=== PATIENT | female | born 1950 | race Caucasian/White ===

== ENCOUNTER 2018-05-18 13:38 | Inpatient (IN) ==
[2018-05-18] MEDS ORDERED: methylPREDNISolone SOD SUC 125 MG/2 ML VIAL IV STA (14:14)
[2018-05-18] MEDS ORDERED: ALBUTEROL 2.5 MG/3 ML NEB RESP TX STA (14:14)
[2018-05-18] MEDS ORDERED: FUROSEMIDE 40 MG/4 ML VIAL IV STA (14:25)
[2018-05-18 14:47] LABS: Basophils % 0.7 % (0.0-0.8); Eosinophils # 0.3 10*3/uL (0.0-0.87); Eosinophils % 5.4 % (0.00-10.9); Hematocrit 37.7 VOL% (35.7-47.0); Hemoglobin 12.6 GM/DL (12.0-16.0); Immature Granulocytes % 0.2 %; Immature Granulocytes Absolute 0.01 #; Lymphocytes % 16.8 % (21.3-54.2); Mean Corpuscular HGB Conc 33.4 GM/DL (32-36); Mean Corpuscular Hemoglobin 32 PG (27-34); Mean Corpuscular Volume 94.5 FL (87-102); Mean Platelet Volume 10.8 FL (9.6-12.0); Monocytes # 0.5 10*3/uL (0.11-0.8); Monocytes % 8.4 % (1.7-12.7); Neutrophils # 4.1 10*3/uL (1.4-7.4); Neutrophils % 68.5 % (38.7-73.9); Platelet Count 115 T/CUMM (130-400); Red Blood Count 3.99 MC/CUMM (3.8-5.5); Red Cell Distribution Width 14.3 % (9.3-17.3); White Blood Count 5.9 T/CUMM (4-12)
[2018-05-18] MEDS ORDERED: LEVOFLOXACIN INJ 500 MG in PREMIX 1 EACH IV STA (14:57)
[2018-05-18 15:03] LABS: INR 1.5
[2018-05-18 15:06] LABS: Albumin 3.8 G/DL (3.4-5.0); Bilirubin,Total 0.7 MG/DL (0.2-1.0); Calcium 8.8 MG/DL (8.5-10.1); Osmolality,Calculated 279.5 MOS/KG (273-304); Potassium 4.2 MMOL/L (3.5-5.1); Total Protein 7.4 G/DL (6.4-8.3)
[2018-05-18] MEDS ORDERED: IPRATROPIUM 500 MCG/2.5 ML NEB RESP TX PRN (18:04)
[2018-05-18] MEDS ORDERED: ALBUTEROL 2.5 MG/3 ML NEB RESP TX PRN (19:01)
[2018-05-18] MEDS ORDERED: ONDANSETRON 4 MG/2 ML VIAL IV PRN (19:40)
[2018-05-18] MEDS ORDERED: MEROPENEM 1,000 MG in SYRINGE 1 EACH IV SCH (20:00)
[2018-05-18] MEDS: methylPREDNISolone SOD SUC 40 MG/1 ML VIAL IV SCH (20:58)
[2018-05-18] MEDS: GABAPENTIN 300 MG CAPSULE PO SCH (20:59)
[2018-05-18] MEDS: cefTRIAXone 1,000 MG in SYRINGE 1 EACH IV SCH (20:59)
[2018-05-18] MEDS: METOPROLOL TARTRATE 100 MG TABLET PO SCH (20:59)
[2018-05-18] MEDS: glipiZIDE 5 MG TABLET PO SCH (21:00)
[2018-05-18] MEDS: POTASSIUM CHLORIDE 20 MEQ TABLET PO SCH (21:00)
[2018-05-18] MEDS: DOCUSATE SODIUM 100 MG CAPSULE PO SCH (21:00)
[2018-05-18] MEDS: FUROSEMIDE 80 MG TABLET PO SCH (21:00)
[2018-05-18] MEDS: WARFARIN 4 MG TABLET PO SCH (21:00)
[2018-05-18] MEDS: MAGNESIUM OXIDE 400 MG TABLET PO SCH (21:01)
[2018-05-18] MEDS: FAMOTIDINE 20 MG TABLET PO SCH (21:01)
[2018-05-18] MEDS: ALBUTEROL/IPRATROPIUM 3 ML NEB RESP TX SCH ×2 (23:57→23:58)
[2018-05-19] MEDS: ZALEPLON 5 MG CAPSULE PO PRN ×2 (01:25→22:19)
[2018-05-19] MEDS: ALBUTEROL/IPRATROPIUM 3 ML NEB RESP TX SCH ×4 (03:22→20:10)
[2018-05-19 05:20] LABS: Eosinophils % 0.3 % (0.00-10.9); Hematocrit 36.2 VOL% (35.7-47.0); Hemoglobin 11.9 GM/DL (12.0-16.0); Immature Granulocytes % 0.3 %; Immature Granulocytes Absolute 0.01 #; Lymphocytes # 0.8 10*3/uL (1.4-4.0); Lymphocytes % 20.5 % (21.3-54.2); Mean Corpuscular HGB Conc 32.9 GM/DL (32-36); Mean Corpuscular Hemoglobin 31 PG (27-34); Mean Corpuscular Volume 94.5 FL (87-102); Mean Platelet Volume 11.3 FL (9.6-12.0); Monocytes # 0.1 10*3/uL (0.11-0.8); Monocytes % 1.3 % (1.7-12.7); Neutrophils # 3.1 10*3/uL (1.4-7.4); Neutrophils % 77.6 % (38.7-73.9); Platelet Count 118 T/CUMM (130-400); Red Blood Count 3.83 MC/CUMM (3.8-5.5); Red Cell Distribution Width 14.1 % (9.3-17.3)
[2018-05-19 05:22] LABS: INR 1.5; PT Patient Result 15.6 SECS
[2018-05-19 05:26] LABS: Lactic Acid 0.9 MMOL/L (0.4-2.0)
[2018-05-19 05:44] LABS: Band Neutrophils 2 % (0-10); Hypochromasia 1+; Lymphocytes 15 % (20-55); Ovalocytes Slight; Platelet Estimate Decreased; Segmented Neutrophils 81 % (50-85); Total Cells Counted 100
[2018-05-19 05:57] LABS: Blood Urea Nitrogen 24 MG/DL (7-18); Glucose 110 MG/DL (74-106); Osmolality,Calculated 281.5 MOS/KG (273-304); Potassium 4.3 MMOL/L (3.5-5.1); Sodium 139 MMOL/L (136-145); Troponin I < 0.015 NG/ML (0.00-0.045)
[2018-05-19] MEDS: LEVOTHYROXINE 50 MCG TABLET PO SCH (06:36)
[2018-05-19] MEDS: DILTIAZEM CD 120 MG CAPSULE PO SCH (09:01)
[2018-05-19] MEDS: MULTIVITAMIN (CENTRUM) TABLET PO SCH (09:01)
[2018-05-19] MEDS: FAMOTIDINE 20 MG TABLET PO SCH ×2 (09:02→20:59)
[2018-05-19] MEDS: MAGNESIUM OXIDE 400 MG TABLET PO SCH ×2 (09:02→20:59)
[2018-05-19] MEDS: GABAPENTIN 300 MG CAPSULE PO SCH ×3 (09:02→20:59)
[2018-05-19] MEDS: MONTELUKAST 10 MG TABLET PO SCH (09:02)
[2018-05-19] MEDS: HYDROXYCHLOROQUINE 200 MG TABLET PO SCH (09:02)
[2018-05-19] MEDS: PANTOPRAZOLE 40 MG TABLET PO SCH (09:02)
[2018-05-19] MEDS: CALCIUM (CARBONATE)/VITAMIN D 600 MG-400 UNIT TABLET PO SCH (09:03)
[2018-05-19] MEDS: glipiZIDE 5 MG TABLET PO SCH ×3 (09:03→20:59)
[2018-05-19] MEDS: ASCORBIC ACID 500 MG TABLET PO SCH (09:03)
[2018-05-19] MEDS: METOPROLOL TARTRATE 100 MG TABLET PO SCH ×3 (09:03→20:59)
[2018-05-19] MEDS: ASPIRIN EC 81 MG TABLET PO SCH (09:03)
[2018-05-19] MEDS: POTASSIUM CHLORIDE 20 MEQ TABLET PO SCH ×2 (09:03→20:59)
[2018-05-19] MEDS: FUROSEMIDE 80 MG TABLET PO SCH ×2 (09:04→16:28)
[2018-05-19] MEDS: methylPREDNISolone SOD SUC 40 MG/1 ML VIAL IV SCH ×2 (09:04→20:58)
[2018-05-19] MEDS: SERTRALINE 50 MG TABLET PO SCH (09:04)
[2018-05-19] MEDS: AZITHROMYCIN INJ 500 MG in SODIUM CHLORIDE 0.9% 250 ML IV SCH (09:04)
[2018-05-19] MEDS: ARFORMOTEROL 15 MCG/2 ML NEB RESP TX SCH ×2 (09:39→20:10)
[2018-05-19] MEDS: WARFARIN 4 MG TABLET PO SCH (17:49)
[2018-05-19] MEDS: BUDESONIDE 0.5 MG/2 ML NEB RESP TX SCH (20:11)
[2018-05-19] MEDS: cefTRIAXone 1,000 MG in SYRINGE 1 EACH IV SCH (20:58)
[2018-05-19] MEDS: DOCUSATE SODIUM 100 MG CAPSULE PO SCH (21:00)
[2018-05-20] MEDS: ALBUTEROL/IPRATROPIUM 3 ML NEB RESP TX SCH ×4 (02:08→18:56)
[2018-05-20 04:29] LABS: Hematocrit 34.6 VOL% (35.7-47.0); Hemoglobin 11.5 GM/DL (12.0-16.0); Immature Granulocytes % 0.4 %; Immature Granulocytes Absolute 0.02 #; Lymphocytes # 0.7 10*3/uL (1.4-4.0); Lymphocytes % 15.2 % (21.3-54.2); Mean Corpuscular HGB Conc 33.2 GM/DL (32-36); Mean Corpuscular Hemoglobin 31 PG (27-34); Mean Corpuscular Volume 93.8 FL (87-102); Mean Platelet Volume 11.2 FL (9.6-12.0); Monocytes # 0.1 10*3/uL (0.11-0.8); Monocytes % 2.3 % (1.7-12.7); Neutrophils % 82.1 % (38.7-73.9); Platelet Count 117 T/CUMM (130-400); Red Blood Count 3.69 MC/CUMM (3.8-5.5); Red Cell Distribution Width 14.1 % (9.3-17.3); White Blood Count 4.9 T/CUMM (4-12)
[2018-05-20 04:39] LABS: PT Patient Result 20.8 SECS
[2018-05-20 04:57] LABS: Calcium 8.9 MG/DL (8.5-10.1); Osmolality,Calculated 289.3 MOS/KG (273-304)
[2018-05-20 05:01] LABS: Risk Ratio 3.39; VLDL CHOLESTEROL 12.4 MG/DL
[2018-05-20] MEDS: LEVOTHYROXINE 50 MCG TABLET PO SCH (06:22)
[2018-05-20] MEDS: BUDESONIDE 0.5 MG/2 ML NEB RESP TX SCH ×2 (07:04→18:56)
[2018-05-20] MEDS: ARFORMOTEROL 15 MCG/2 ML NEB RESP TX SCH ×2 (07:04→19:11)
[2018-05-20] MEDS: PANTOPRAZOLE 40 MG TABLET PO SCH (09:44)
[2018-05-20] MEDS: MULTIVITAMIN (CENTRUM) TABLET PO SCH (09:44)
[2018-05-20] MEDS: FAMOTIDINE 20 MG TABLET PO SCH ×2 (09:45→20:47)
[2018-05-20] MEDS: MAGNESIUM OXIDE 400 MG TABLET PO SCH ×2 (09:45→20:47)
[2018-05-20] MEDS: FUROSEMIDE 80 MG TABLET PO SCH ×2 (09:45→15:10)
[2018-05-20] MEDS: DILTIAZEM CD 120 MG CAPSULE PO SCH (09:45)
[2018-05-20] MEDS: POTASSIUM CHLORIDE 20 MEQ TABLET PO SCH ×2 (09:45→20:47)
[2018-05-20] MEDS: MONTELUKAST 10 MG TABLET PO SCH (09:45)
[2018-05-20] MEDS: GABAPENTIN 300 MG CAPSULE PO SCH ×3 (09:45→20:47)
[2018-05-20] MEDS: HYDROXYCHLOROQUINE 200 MG TABLET PO SCH (09:45)
[2018-05-20] MEDS: ASCORBIC ACID 500 MG TABLET PO SCH (09:45)
[2018-05-20] MEDS: ASPIRIN EC 81 MG TABLET PO SCH (09:46)
[2018-05-20] MEDS: glipiZIDE 5 MG TABLET PO SCH ×2 (09:46→20:48)
[2018-05-20] MEDS: methylPREDNISolone SOD SUC 40 MG/1 ML VIAL IV SCH (09:46)
[2018-05-20] MEDS: SERTRALINE 50 MG TABLET PO SCH (09:46)
[2018-05-20] MEDS: METOPROLOL TARTRATE 100 MG TABLET PO SCH ×2 (09:46→20:47)
[2018-05-20] MEDS: methylPREDNISolone SOD SUC 125 MG/2 ML VIAL IV SCH ×3 (10:25→23:31)
[2018-05-20] MEDS: AZITHROMYCIN INJ 500 MG in SODIUM CHLORIDE 0.9% 250 ML IV SCH (10:25)
[2018-05-20] MEDS: CALCIUM (CARBONATE)/VITAMIN D 600 MG-400 UNIT TABLET PO SCH (10:25)
[2018-05-20 12:04] LABS: ABG Base Excess -0.8 MMOL/L (-2.5-2.5); ABG HCO3 23.7 MMOL/L (20-26); ABG Oxygen Saturation 95.7 % (95-100); ABG PCO2 34.1 MM HG (35-48); ABG PH 7.432 (7.35-7.45); ABG PO2 77.9 MM HG (80-95); ABG TCO2 19.9 MMOL/L (23-27); Pt O2 Delivery Device Room Air
[2018-05-20] MEDS: WARFARIN 4 MG TABLET PO SCH (17:28)
[2018-05-20] MEDS: cefTRIAXone 1,000 MG in SYRINGE 1 EACH IV SCH (20:46)
[2018-05-20] MEDS: DOCUSATE SODIUM 100 MG CAPSULE PO SCH (20:48)
[2018-05-20] MEDS: ZALEPLON 5 MG CAPSULE PO PRN (23:41)
[2018-05-21] MEDS: ALBUTEROL/IPRATROPIUM 3 ML NEB RESP TX SCH ×2 (00:42→07:15)
[2018-05-21] MEDS: methylPREDNISolone SOD SUC 125 MG/2 ML VIAL IV SCH ×4 (05:03→23:19)
[2018-05-21 05:28] LABS: Hematocrit 35.5 VOL% (35.7-47.0); Hemoglobin 11.6 GM/DL (12.0-16.0); Immature Granulocytes % 0.7 %; Immature Granulocytes Absolute 0.03 #; Lymphocytes # 0.7 10*3/uL (1.4-4.0); Lymphocytes % 15.1 % (21.3-54.2); Mean Corpuscular HGB Conc 32.7 GM/DL (32-36); Mean Corpuscular Hemoglobin 31 PG (27-34); Mean Corpuscular Volume 94.9 FL (87-102); Mean Platelet Volume 11.7 FL (9.6-12.0); Monocytes # 0.1 10*3/uL (0.11-0.8); Monocytes % 2.7 % (1.7-12.7); Neutrophils # 3.7 10*3/uL (1.4-7.4); Neutrophils % 81.5 % (38.7-73.9); Platelet Count 112 T/CUMM (130-400); Red Blood Count 3.74 MC/CUMM (3.8-5.5); Red Cell Distribution Width 14.3 % (9.3-17.3); White Blood Count 4.5 T/CUMM (4-12)
[2018-05-21 05:36] LABS: INR 2.6
[2018-05-21 05:38] LABS: PT Patient Result 26.4 SECS
[2018-05-21 05:55] LABS: Calcium 9.6 MG/DL (8.5-10.1); Osmolality,Calculated 289.1 MOS/KG (273-304); Potassium 4.1 MMOL/L (3.5-5.1)
[2018-05-21] MEDS: LEVOTHYROXINE 50 MCG TABLET PO SCH (06:55)
[2018-05-21] MEDS: BUDESONIDE 0.5 MG/2 ML NEB RESP TX SCH ×2 (07:15→19:02)
[2018-05-21] MEDS: ARFORMOTEROL 15 MCG/2 ML NEB RESP TX SCH ×2 (07:15→19:02)
[2018-05-21] MEDS: SERTRALINE 50 MG TABLET PO SCH (09:09)
[2018-05-21] MEDS: glipiZIDE 5 MG TABLET PO SCH ×2 (09:09→21:26)
[2018-05-21] MEDS: ASCORBIC ACID 500 MG TABLET PO SCH (09:10)
[2018-05-21] MEDS: PANTOPRAZOLE 40 MG TABLET PO SCH (09:10)
[2018-05-21] MEDS: DILTIAZEM CD 120 MG CAPSULE PO SCH ×2 (09:10→21:27)
[2018-05-21] MEDS: GABAPENTIN 300 MG CAPSULE PO SCH ×3 (09:10→21:27)
[2018-05-21] MEDS: MAGNESIUM OXIDE 400 MG TABLET PO SCH ×2 (09:10→21:27)
[2018-05-21] MEDS: FAMOTIDINE 20 MG TABLET PO SCH ×2 (09:10→21:26)
[2018-05-21] MEDS: METOPROLOL TARTRATE 100 MG TABLET PO SCH ×2 (09:10→21:28)
[2018-05-21] MEDS: MULTIVITAMIN (CENTRUM) TABLET PO SCH (09:10)
[2018-05-21] MEDS: MONTELUKAST 10 MG TABLET PO SCH (09:10)
[2018-05-21] MEDS: POTASSIUM CHLORIDE 20 MEQ TABLET PO SCH ×2 (09:11→21:27)
[2018-05-21] MEDS: ASPIRIN EC 81 MG TABLET PO SCH (09:11)
[2018-05-21] MEDS: FUROSEMIDE 80 MG TABLET PO SCH ×2 (09:11→16:59)
[2018-05-21] MEDS: HYDROXYCHLOROQUINE 200 MG TABLET PO SCH (09:12)
[2018-05-21] MEDS: CALCIUM (CARBONATE)/VITAMIN D 600 MG-400 UNIT TABLET PO SCH (09:13)
[2018-05-21] MEDS: LEVALBUTEROL 1.25 MG/3 ML NEB RESP TX SCH ×4 (11:11→23:36)
[2018-05-21] MEDS: AZITHROMYCIN INJ 500 MG in SODIUM CHLORIDE 0.9% 250 ML IV SCH (11:17)
[2018-05-21] MEDS: WARFARIN 4 MG TABLET PO SCH (18:28)
[2018-05-21] MEDS: cefTRIAXone 1,000 MG in SYRINGE 1 EACH IV SCH (21:26)
[2018-05-21] MEDS: ZALEPLON 5 MG CAPSULE PO PRN (21:26)
[2018-05-21] MEDS: DOCUSATE SODIUM 100 MG CAPSULE PO SCH (21:27)
[2018-05-22] MEDS: LEVALBUTEROL 1.25 MG/3 ML NEB RESP TX SCH ×6 (03:42→23:01)
[2018-05-22] MEDS: methylPREDNISolone SOD SUC 125 MG/2 ML VIAL IV SCH ×4 (04:19→22:37)
[2018-05-22 05:37] LABS: Hematocrit 34.8 VOL% (35.7-47.0); Hemoglobin 11.3 GM/DL (12.0-16.0); Immature Granulocytes % 0.3 %; Immature Granulocytes Absolute 0.01 #; Lymphocytes # 0.6 10*3/uL (1.4-4.0); Lymphocytes % 17.6 % (21.3-54.2); Mean Corpuscular HGB Conc 32.5 GM/DL (32-36); Mean Corpuscular Hemoglobin 31 PG (27-34); Mean Corpuscular Volume 94.8 FL (87-102); Mean Platelet Volume 10.9 FL (9.6-12.0); Monocytes # 0.1 10*3/uL (0.11-0.8); Monocytes % 3.6 % (1.7-12.7); Neutrophils # 2.6 10*3/uL (1.4-7.4); Neutrophils % 78.5 % (38.7-73.9); Platelet Count 109 T/CUMM (130-400); Red Blood Count 3.67 MC/CUMM (3.8-5.5); Red Cell Distribution Width 14.4 % (9.3-17.3); White Blood Count 3.4 T/CUMM (4-12)
[2018-05-22 05:47] LABS: PT Patient Result 30.8 SECS
[2018-05-22 06:01] LABS: Calcium 8.8 MG/DL (8.5-10.1); Osmolality,Calculated 286.4 MOS/KG (273-304); Potassium 4.3 MMOL/L (3.5-5.1)
[2018-05-22] MEDS: LEVOTHYROXINE 50 MCG TABLET PO SCH (06:02)
[2018-05-22] MEDS: BUDESONIDE 0.5 MG/2 ML NEB RESP TX SCH ×2 (07:00→19:13)
[2018-05-22] MEDS: ARFORMOTEROL 15 MCG/2 ML NEB RESP TX SCH ×2 (07:00→19:13)
[2018-05-22] MEDS: PANTOPRAZOLE 40 MG TABLET PO SCH (08:23)
[2018-05-22] MEDS: ASCORBIC ACID 500 MG TABLET PO SCH (08:23)
[2018-05-22] MEDS: METOPROLOL TARTRATE 100 MG TABLET PO SCH ×2 (08:23→21:10)
[2018-05-22] MEDS: CALCIUM (CARBONATE)/VITAMIN D 600 MG-400 UNIT TABLET PO SCH (08:23)
[2018-05-22] MEDS: HYDROXYCHLOROQUINE 200 MG TABLET PO SCH (08:23)
[2018-05-22] MEDS: GABAPENTIN 300 MG CAPSULE PO SCH ×3 (08:23→21:09)
[2018-05-22] MEDS: SERTRALINE 50 MG TABLET PO SCH (08:24)
[2018-05-22] MEDS: DILTIAZEM CD 120 MG CAPSULE PO SCH ×2 (08:24→21:19)
[2018-05-22] MEDS: POTASSIUM CHLORIDE 20 MEQ TABLET PO SCH ×2 (08:24→21:10)
[2018-05-22] MEDS: MONTELUKAST 10 MG TABLET PO SCH (08:24)
[2018-05-22] MEDS: FAMOTIDINE 20 MG TABLET PO SCH ×2 (08:24→21:20)
[2018-05-22] MEDS: ASPIRIN EC 81 MG TABLET PO SCH (08:24)
[2018-05-22] MEDS: MULTIVITAMIN (CENTRUM) TABLET PO SCH (08:24)
[2018-05-22] MEDS: MAGNESIUM OXIDE 400 MG TABLET PO SCH ×2 (08:25→21:10)
[2018-05-22] MEDS: FUROSEMIDE 80 MG TABLET PO SCH ×2 (08:25→15:28)
[2018-05-22] MEDS: AZITHROMYCIN INJ 500 MG in SODIUM CHLORIDE 0.9% 250 ML IV SCH (08:27)
[2018-05-22] MEDS: glipiZIDE 5 MG TABLET PO SCH ×2 (08:31→21:08)
[2018-05-22] MEDS: WARFARIN 2 MG TABLET PO SCH (17:30)
[2018-05-22] MEDS ORDERED: WARFARIN 4 MG TABLET PO SCH (18:00)
[2018-05-22] MEDS: cefTRIAXone 1,000 MG in SYRINGE 1 EACH IV SCH (19:48)
[2018-05-22] MEDS: ZALEPLON 5 MG CAPSULE PO PRN (21:17)
[2018-05-22] MEDS: DOCUSATE SODIUM 100 MG CAPSULE PO SCH (21:20)
[2018-05-23] MEDS: LEVALBUTEROL 1.25 MG/3 ML NEB RESP TX SCH ×7 (03:07→20:16)
[2018-05-23] MEDS: methylPREDNISolone SOD SUC 125 MG/2 ML VIAL IV SCH ×4 (04:21→21:31)
[2018-05-23 06:28] LABS: Hematocrit 34.5 VOL% (35.7-47.0); Hemoglobin 11.2 GM/DL (12.0-16.0); Immature Granulocytes % 0.5 %; Immature Granulocytes Absolute 0.01 #; Lymphocytes # 0.5 10*3/uL (1.4-4.0); Lymphocytes % 21.4 % (21.3-54.2); Mean Corpuscular HGB Conc 32.5 GM/DL (32-36); Mean Corpuscular Hemoglobin 32 PG (27-34); Mean Corpuscular Volume 96.9 FL (87-102); Mean Platelet Volume 11.1 FL (9.6-12.0); Monocytes # 0.1 10*3/uL (0.11-0.8); Monocytes % 3.7 % (1.7-12.7); Neutrophils # 1.6 10*3/uL (1.4-7.4); Neutrophils % 74.4 % (38.7-73.9); Platelet Count 102 T/CUMM (130-400); Red Blood Count 3.56 MC/CUMM (3.8-5.5); Red Cell Distribution Width 14.2 % (9.3-17.3); White Blood Count 2.2 T/CUMM (4-12)
[2018-05-23] MEDS: LEVOTHYROXINE 50 MCG TABLET PO SCH (06:36)
[2018-05-23 06:55] LABS: Calcium 8.7 MG/DL (8.5-10.1); Osmolality,Calculated 287.4 MOS/KG (273-304); Potassium 4.2 MMOL/L (3.5-5.1)
[2018-05-23] MEDS: BUDESONIDE 0.5 MG/2 ML NEB RESP TX SCH ×3 (07:26→20:16)
[2018-05-23] MEDS: ARFORMOTEROL 15 MCG/2 ML NEB RESP TX SCH ×3 (07:26→20:16)
[2018-05-23] MEDS: POTASSIUM CHLORIDE 20 MEQ TABLET PO SCH ×2 (08:51→20:25)
[2018-05-23] MEDS: GABAPENTIN 300 MG CAPSULE PO SCH ×3 (08:52→20:25)
[2018-05-23] MEDS: MONTELUKAST 10 MG TABLET PO SCH (08:52)
[2018-05-23] MEDS: MULTIVITAMIN (CENTRUM) TABLET PO SCH (08:53)
[2018-05-23] MEDS: ASCORBIC ACID 500 MG TABLET PO SCH (08:53)
[2018-05-23] MEDS: CALCIUM (CARBONATE)/VITAMIN D 600 MG-400 UNIT TABLET PO SCH (08:53)
[2018-05-23] MEDS: PANTOPRAZOLE 40 MG TABLET PO SCH (08:53)
[2018-05-23] MEDS: FAMOTIDINE 20 MG TABLET PO SCH ×2 (08:53→20:25)
[2018-05-23] MEDS: DILTIAZEM CD 120 MG CAPSULE PO SCH ×2 (08:54→20:25)
[2018-05-23] MEDS: ASPIRIN EC 81 MG TABLET PO SCH (08:54)
[2018-05-23] MEDS: SERTRALINE 50 MG TABLET PO SCH (08:54)
[2018-05-23] MEDS: METOPROLOL TARTRATE 100 MG TABLET PO SCH ×2 (08:54→20:26)
[2018-05-23] MEDS: glipiZIDE 5 MG TABLET PO SCH ×3 (08:55→20:31)
[2018-05-23] MEDS: FUROSEMIDE 80 MG TABLET PO SCH ×2 (08:55→16:24)
[2018-05-23] MEDS: HYDROXYCHLOROQUINE 200 MG TABLET PO SCH (08:55)
[2018-05-23] MEDS: MAGNESIUM OXIDE 400 MG TABLET PO SCH ×2 (09:01→20:25)
[2018-05-23] MEDS: AZITHROMYCIN INJ 500 MG in SODIUM CHLORIDE 0.9% 250 ML IV SCH (09:06)
[2018-05-23] MEDS: WARFARIN 2 MG TABLET PO SCH (18:16)
[2018-05-23] MEDS: cefTRIAXone 1,000 MG in SYRINGE 1 EACH IV SCH (20:24)
[2018-05-23] MEDS: DOCUSATE SODIUM 100 MG CAPSULE PO SCH (20:26)
[2018-05-23] MEDS: ZALEPLON 5 MG CAPSULE PO PRN (20:38)
[2018-05-24] MEDS: LEVALBUTEROL 1.25 MG/3 ML NEB RESP TX SCH ×7 (00:18→23:09)
[2018-05-24] MEDS: methylPREDNISolone SOD SUC 125 MG/2 ML VIAL IV SCH (05:06)
[2018-05-24 06:08] LABS: Hematocrit 37.5 VOL% (35.7-47.0); Hemoglobin 12.2 GM/DL (12.0-16.0); Immature Granulocytes % 0.3 %; Immature Granulocytes Absolute 0.01 #; Lymphocytes # 0.5 10*3/uL (1.4-4.0); Lymphocytes % 12.9 % (21.3-54.2); Mean Corpuscular HGB Conc 32.5 GM/DL (32-36); Mean Corpuscular Hemoglobin 31 PG (27-34); Mean Corpuscular Volume 96.6 FL (87-102); Mean Platelet Volume 10.8 FL (9.6-12.0); Monocytes # 0.1 10*3/uL (0.11-0.8); Monocytes % 3.1 % (1.7-12.7); Neutrophils # 2.9 10*3/uL (1.4-7.4); Neutrophils % 83.7 % (38.7-73.9); Platelet Count 119 T/CUMM (130-400); Red Blood Count 3.88 MC/CUMM (3.8-5.5); Red Cell Distribution Width 14.2 % (9.3-17.3); White Blood Count 3.5 T/CUMM (4-12)
[2018-05-24 06:43] LABS: Calcium 8.9 MG/DL (8.5-10.1); Osmolality,Calculated 285.7 MOS/KG (273-304); Potassium 3.9 MMOL/L (3.5-5.1)
[2018-05-24] MEDS: ARFORMOTEROL 15 MCG/2 ML NEB RESP TX SCH (07:26)
[2018-05-24] MEDS: BUDESONIDE 0.5 MG/2 ML NEB RESP TX SCH ×2 (07:27→19:45)
[2018-05-24] MEDS: CALCIUM (CARBONATE)/VITAMIN D 600 MG-400 UNIT TABLET PO SCH (09:10)
[2018-05-24] MEDS: MONTELUKAST 10 MG TABLET PO SCH (09:10)
[2018-05-24] MEDS: DILTIAZEM CD 120 MG CAPSULE PO SCH ×2 (09:10→20:30)
[2018-05-24] MEDS: PANTOPRAZOLE 40 MG TABLET PO SCH (09:10)
[2018-05-24] MEDS: ASPIRIN EC 81 MG TABLET PO SCH (09:10)
[2018-05-24] MEDS: ASCORBIC ACID 500 MG TABLET PO SCH (09:10)
[2018-05-24] MEDS: GABAPENTIN 300 MG CAPSULE PO SCH ×3 (09:10→20:29)
[2018-05-24] MEDS: MULTIVITAMIN (CENTRUM) TABLET PO SCH (09:10)
[2018-05-24] MEDS: METOPROLOL TARTRATE 100 MG TABLET PO SCH ×2 (09:11→20:29)
[2018-05-24] MEDS: glipiZIDE 5 MG TABLET PO SCH ×2 (09:11→20:29)
[2018-05-24] MEDS: MAGNESIUM OXIDE 400 MG TABLET PO SCH ×2 (09:11→20:30)
[2018-05-24] MEDS: LEVOTHYROXINE 50 MCG TABLET PO SCH (09:11)
[2018-05-24] MEDS: SERTRALINE 50 MG TABLET PO SCH (09:11)
[2018-05-24] MEDS: HYDROXYCHLOROQUINE 200 MG TABLET PO SCH (09:11)
[2018-05-24] MEDS: POTASSIUM CHLORIDE 20 MEQ TABLET PO SCH ×2 (09:11→20:29)
[2018-05-24] MEDS: FUROSEMIDE 80 MG TABLET PO SCH ×2 (09:11→15:12)
[2018-05-24] MEDS: FAMOTIDINE 20 MG TABLET PO SCH ×2 (09:11→20:29)
[2018-05-24] MEDS: AZITHROMYCIN INJ 500 MG in SODIUM CHLORIDE 0.9% 250 ML IV SCH (09:12)
[2018-05-24 10:03] LABS: PT Patient Result 40.1 SECS
[2018-05-24] MEDS ORDERED: LOPERAMIDE 2 MG CAPSULE PO PRN (16:54)
[2018-05-24] MEDS: cefTRIAXone 1,000 MG in SYRINGE 1 EACH IV SCH (20:28)
[2018-05-24] MEDS: ZALEPLON 5 MG CAPSULE PO PRN (20:29)
[2018-05-24] MEDS: DOCUSATE SODIUM 100 MG CAPSULE PO SCH (20:30)
[2018-05-25] MEDS: LEVALBUTEROL 1.25 MG/3 ML NEB RESP TX SCH ×2 (02:48→07:35)
[2018-05-25 05:26] LABS: Hematocrit 34.1 VOL% (35.7-47.0); Hemoglobin 11.3 GM/DL (12.0-16.0); Immature Granulocytes % 0.6 %; Immature Granulocytes Absolute 0.02 #; Lymphocytes # 0.4 10*3/uL (1.4-4.0); Lymphocytes % 11.2 % (21.3-54.2); Mean Corpuscular HGB Conc 33.1 GM/DL (32-36); Mean Corpuscular Hemoglobin 31 PG (27-34); Mean Corpuscular Volume 93.7 FL (87-102); Mean Platelet Volume 10.5 FL (9.6-12.0); Monocytes # 0.2 10*3/uL (0.11-0.8); Neutrophils # 2.8 10*3/uL (1.4-7.4); Neutrophils % 83.2 % (38.7-73.9); Platelet Count 111 T/CUMM (130-400); Red Blood Count 3.64 MC/CUMM (3.8-5.5); Red Cell Distribution Width 14.5 % (9.3-17.3); White Blood Count 3.4 T/CUMM (4-12)
[2018-05-25 05:46] LABS: Calcium 8.6 MG/DL (8.5-10.1); Osmolality,Calculated 288.4 MOS/KG (273-304); Potassium 3.7 MMOL/L (3.5-5.1)
[2018-05-25] MEDS: LEVOTHYROXINE 50 MCG TABLET PO SCH (06:03)
[2018-05-25] MEDS: BUDESONIDE 0.5 MG/2 ML NEB RESP TX SCH (07:35)
[2018-05-25] MEDS ORDERED: predniSONE 20 MG TABLET PO SCH (09:00)
[2018-05-25] MEDS: MULTIVITAMIN (CENTRUM) TABLET PO SCH (09:42)
[2018-05-25] MEDS: PANTOPRAZOLE 40 MG TABLET PO SCH (09:42)
[2018-05-25] MEDS: AZITHROMYCIN INJ 500 MG in SODIUM CHLORIDE 0.9% 250 ML IV SCH (09:42)
[2018-05-25] MEDS: CALCIUM (CARBONATE)/VITAMIN D 600 MG-400 UNIT TABLET PO SCH (09:43)
[2018-05-25] MEDS: SERTRALINE 50 MG TABLET PO SCH (09:43)
[2018-05-25] MEDS: ASCORBIC ACID 500 MG TABLET PO SCH (09:43)
[2018-05-25] MEDS: GABAPENTIN 300 MG CAPSULE PO SCH (09:44)
[2018-05-25] MEDS: glipiZIDE 5 MG TABLET PO SCH (09:45)
[2018-05-25] MEDS: FUROSEMIDE 80 MG TABLET PO SCH (09:45)
[2018-05-25] MEDS: DILTIAZEM CD 120 MG CAPSULE PO SCH (09:45)
[2018-05-25] MEDS: METOPROLOL TARTRATE 100 MG TABLET PO SCH (09:46)
[2018-05-25] MEDS: ASPIRIN EC 81 MG TABLET PO SCH (09:46)
[2018-05-25] MEDS: POTASSIUM CHLORIDE 20 MEQ TABLET PO SCH (09:46)
[2018-05-25] MEDS: HYDROXYCHLOROQUINE 200 MG TABLET PO SCH (09:47)
[2018-05-25] MEDS: MONTELUKAST 10 MG TABLET PO SCH (09:47)
[2018-05-25] MEDS: FAMOTIDINE 20 MG TABLET PO SCH (09:47)
[2018-05-25] MEDS: MAGNESIUM OXIDE 400 MG TABLET PO SCH (09:48)
[2018-05-25] MEDS: IPRATROPIUM 500 MCG/2.5 ML NEB RESP TX SCH ×2 (11:00→12:08)
[2018-05-25 11:47] VITALS: BP 86/58
[2018-05-25] MEDS ORDERED: MONTELUKAST 10 MG TABLET PO SCH (21:00)
== END 2018-05-25 15:50 | disposition home or self-care (01) | DRG 190 ==
LOC: N.ED 13:38 → SUATTDRO 18:08 → N.EDINP 18:08 → N.TELES 18:40
PROVIDERS: ADMIT Internal Medicine